=== PATIENT | male | born 1950 | race Caucasian/White ===

== ENCOUNTER 2020-12-14 10:49 | Day surgery (SDC) | payer OTHER ==
[~2020-12-14] VITALS: Ht 177.8 cm; Wt 85.9 kg
[2020-12-14] VITALS (8 sets, daily range): BP systolic 124–146; BP diastolic 77–89
[2020-12-14] MEDS ORDERED: normal saline 1000ml 1,000 ML IV SCH (11:10)
[2020-12-14] MEDS ORDERED: MIDAZolam 1mg/ml 10ml vial IV ONE (11:10)
[2020-12-14] MEDS ORDERED: fentaNYL/PF 50MCG/1 ML 2ML syringe IV ONE (11:10)
[2020-12-14 11:39] LABS: BASOPHILS % (AUTO) 0.4 % (0-1); EOSINOPHILS # (AUTO) 0.1 X10'3 (0-0.9); EOSINOPHILS % (AUTO) 1.2 % (0-6); HEMATOCRIT 42.2 % (42.0-52.0); HEMOGLOBIN 14.1 g/dl (14.0-17.9); LYMPHOCYTES # (AUTO) 1.8 X10'3 (1.1-4.8); LYMPHOCYTES % (AUTO) 23.9 % (21-51); MEAN CORPUSCULAR HEMOGLOBIN 31.1 PG (27.0-31.0); MEAN CORPUSCULAR HGB CONC 33.4 g/dL (33.0-36.5); MEAN CORPUSCULAR VOLUME 93.1 FL (78-98); MEAN PLATELET VOLUME 7.5 FL (7.4-10.4); MONOCYTES # (AUTO) 0.8 X10'3 (0-0.9); MONOCYTES % (AUTO) 11.2 % (2-12); NEUTROPHILS # (AUTO) 4.7 X10'3 (1.8-7.7); NEUTROPHILS % (AUTO) 63.3 % (42-75); PLATELET COUNT 283 X10'3 (140-440); RED BLOOD COUNT 4.53 X10'6 (4.70-6.10); RED CELL DISTRIBUTION WIDTH 14.1 % (11.5-14.5); WHITE BLOOD COUNT 7.4 X10'3 (4.5-11.0)
[2020-12-14 11:46] LABS: ALBUMIN 3.4 G/DL (3.4-5.0); ANION GAP 9 (8-16); BLOOD UREA NITROGEN 11 MG/DL (7-18); BUN/CREATININE RATIO 11.7 (5.4-32.0); CALCIUM 8.4 MG/DL (8.5-10.1); CHLORIDE 109 MMOL/L (99-107); CREATININE 0.94 MG/DL (0.60-1.10); POTASSIUM 4.4 MMOL/L (3.5-5.1); SODIUM 143 MMOL/L (135-145); TOTAL CARBON DIOXIDE 25.5 MMOL/L (24-32); eGFR 79 ML/MIN
[2020-12-14] MEDS ORDERED: SOTA80TA73 PO (11:53)
[2020-12-14] MEDS ORDERED: ACET-1025 PO (11:53)
[2020-12-14] MEDS ORDERED: LISI20TA28 PO (11:53)
[2020-12-14] MEDS ORDERED: OMEP40CA21 PO (11:53)
[2020-12-14] MEDS ORDERED: RIVA20TA PO (11:53)
[2020-12-14] MEDS ORDERED: ALPR-624 PO (11:53)
[2020-12-14] MEDS ORDERED: SIMV80TA2 PO (11:53)
[2020-12-14 11:56] LABS: GLUCOSE 99 MG/DL (70-104)
== END 2020-12-14 14:45 | disposition home or self-care (01) ==
LOC: SSTAY O 10:49
PROVIDERS: ATTEND Internal Medicine Interventional Cardiology
DX: I48.91 Unspecified atrial fibrillation (principal); I10 Essential (primary) hypertension; E78.5 Hyperlipidemia, unspecified; G47.30 Sleep apnea, unspecified; F43.10 Post-traumatic stress disorder, unspecified; Z79.899 Other long term (current) drug therapy; Z89.511 Acquired absence of right leg below knee
CPT/HCPCS: 36415; 80048; 85025; 85610; 92960; 93005; 94799; J2250; J3010; J7030

== ENCOUNTER 2021-08-17 09:11 | Outpatient (CLI) | payer OTHER ==
[~2021-08-17 09:11] MED LIST: ACET-1025 PO; ALPR-624 PO; BARIUM SULFATE 340 ML SUSP.RECON***PROCEDURE AREA ONLY**DONT ENTER PO ONE; LISI20TA28 PO; OMEP40CA21 PO; RIVA20TA PO; SIMETHICONE/SOD BICARB/CIT AC PACKET PO ONE; SIMV80TA2 PO; SOTA80TA73 PO
== END 2021-08-17 23:59 | disposition home or self-care (01) ==
LOC: RAD 09:11
PROVIDERS: ATTEND Nurse Practitioner Family
DX: R13.10 Dysphagia, unspecified (principal)
CPT/HCPCS: 74220

== ENCOUNTER 2021-10-06 08:47 | Emergency (ER) | payer OTHER, MEDICARE ==
[~2021-10-06] VITALS: Ht 177.8 cm; Wt 84.5 kg
[~2021-10-06 08:47] MED LIST changes: -BARIUM SULFATE 340 ML SUSP.RECON***PROCEDURE AREA ONLY**DONT ENTER PO ONE; -SIMETHICONE/SOD BICARB/CIT AC PACKET PO ONE
[2021-10-06 10:02] LABS: BASOPHILS % (AUTO) 0.2 % (0-1); EOSINOPHILS % (AUTO) 0 % (0-6); HEMATOCRIT 40.2 % (42.0-52.0); HEMOGLOBIN 13.8 g/dl (14.0-17.9); LYMPHOCYTES # (AUTO) 0.6 X10'3 (1.1-4.8); MEAN CORPUSCULAR HEMOGLOBIN 30.3 PG (27.0-31.0); MEAN CORPUSCULAR HGB CONC 34.3 g/dL (33.0-36.5); MEAN CORPUSCULAR VOLUME 88.1 FL (78-98); MEAN PLATELET VOLUME 7.4 FL (7.4-10.4); MONOCYTES # (AUTO) 1.1 X10'3 (0-0.9); MONOCYTES % (AUTO) 9.8 % (2-12); PLATELET COUNT 257 X10'3 (140-440); RED BLOOD COUNT 4.56 X10'6 (4.70-6.10); RED CELL DISTRIBUTION WIDTH 15.5 % (11.5-14.5); WHITE BLOOD COUNT 10.7 X10'3 (4.5-11.0)
[2021-10-06 10:31] LABS: ALANINE AMINOTRANSFERASE 20 U/L (12-78); ALBUMIN 2.8 G/DL (3.4-5.0); ALKALINE PHOSPHATASE 115 IU/L (46-116); ANION GAP 11 (8-16); BLOOD UREA NITROGEN 15 MG/DL (7-18); BUN/CREATININE RATIO 15.6 (5.4-32.0); CALCIUM 7.9 MG/DL (8.5-10.1); CHLORIDE 106 MMOL/L (99-107); CREATININE 0.96 MG/DL (0.60-1.10); POTASSIUM 3.6 MMOL/L (3.5-5.1); SODIUM 139 MMOL/L (135-145); TOTAL CARBON DIOXIDE 21.6 MMOL/L (24-32); eGFR 77 ML/MIN
[2021-10-06 10:32] LABS: ALBUMIN/GLOBULIN RATIO 0.7 (1.1-1.5); ASPARTATE AMINO TRANSFERASE 14 U/L (10-37); BILIRUBIN,TOTAL 0.8 MG/DL (0.1-1.0); GLUCOSE 113 MG/DL (70-104); TOTAL PROTEIN 6.8 G/DL (6.4-8.2)
[2021-10-06] MEDS ORDERED: AZIT500T PO (15:30)
[2021-10-06] MEDS ORDERED: sotalol HCl 40mg (1/2 tablet) PO STA ×2 (15:37→16:12)
[2021-10-06] MEDS ORDERED: azithromycin 250mg tablet PO ONE (15:40)
--- NOTE | 2021-10-06 15:40 | NUR ---
Pt connected to case monitor for further observation, denies cp or other sx.
[2021-10-06] MEDS ORDERED: sotalol 80mg tablet PO STA (16:34)
--- NOTE | 2021-10-06 16:49 | NUR ---
Pt d/c home via ambulatory in good condition, instructions given, pt verbalized understanding.
[2021-10-06 16:52] VITALS: BP 142/82
== END 2021-10-06 16:53 | disposition home or self-care (01) ==
LOC: ER 08:48
DX: J18.9 Pneumonia, unspecified organism (principal); Z20.822 Contact with and (suspected) exposure to COVID-19; R07.89 Other chest pain
CPT/HCPCS: 36415; 71045; 71275; 80053; 83880; 84484; 85025; 87635; 93005; 99285; C9803; J3490

== ENCOUNTER 2021-11-01 10:38 | Day surgery (SDC) | payer OTHER ==
[2021-10-27 10:23] LABS: BASOPHILS % (AUTO) 0.3 % (0-1); EOSINOPHILS % (AUTO) 0.5 % (0-6); HEMATOCRIT 43.2 % (42.0-52.0); HEMOGLOBIN 14.5 g/dl (14.0-17.9); LYMPHOCYTES # (AUTO) 1.6 X10'3 (1.1-4.8); LYMPHOCYTES % (AUTO) 20.8 % (21-51); MEAN CORPUSCULAR HEMOGLOBIN 29.7 PG (27.0-31.0); MEAN CORPUSCULAR HGB CONC 33.5 g/dL (33.0-36.5); MEAN CORPUSCULAR VOLUME 88.7 FL (78-98); MEAN PLATELET VOLUME 7.6 FL (7.4-10.4); MONOCYTES # (AUTO) 0.7 X10'3 (0-0.9); MONOCYTES % (AUTO) 9.7 % (2-12); NEUTROPHILS # (AUTO) 5.3 X10'3 (1.8-7.7); NEUTROPHILS % (AUTO) 68.7 % (42-75); PLATELET COUNT 339 X10'3 (140-440); RED BLOOD COUNT 4.87 X10'6 (4.70-6.10); RED CELL DISTRIBUTION WIDTH 15.9 % (11.5-14.5); WHITE BLOOD COUNT 7.7 X10'3 (4.5-11.0)
[2021-10-27 10:34] LABS: APTT 34 SECONDS (22-32)
[2021-10-27 10:35] LABS: ALBUMIN 3.4 G/DL (3.4-5.0); ANION GAP 8 (8-16); BLOOD UREA NITROGEN 12 MG/DL (7-18); BUN/CREATININE RATIO 12.4 (5.4-32.0); CALCIUM 8.6 MG/DL (8.5-10.1); CHLORIDE 109 MMOL/L (99-107); CHOL/HDL RATIO 3.1 (0.00-4.99); CHOLESTEROL 130 MG/DL (0-200); CREATININE 0.97 MG/DL (0.60-1.10); HDL CHOLESTEROL 42 MG/DL (35-60); LDL CHOLESTEROL 70 MG/DL (50-100); POTASSIUM 4.2 MMOL/L (3.5-5.1); SODIUM 142 MMOL/L (135-145); TOTAL CARBON DIOXIDE 24.6 MMOL/L (24-32); TRIGLYCERIDES 91 MG/DL (20-135); eGFR 76 ML/MIN
[2021-10-27 10:36] LABS: GLUCOSE 91 MG/DL (70-104)
[2021-11-01] VITALS (9 sets, daily range): BP systolic 118–151; BP diastolic 80–96
[~2021-11-01] VITALS: Ht 177.8 cm; Wt 84.1 kg
[2021-11-01] MEDS ORDERED: normal saline 1,000 ML IV SCH (11:15)
[2021-11-01] MEDS ORDERED: diphenhydrAMINE 25mg capsule PO PRN (11:15)
[2021-11-01] MEDS ORDERED: LORazepam 0.5 MG tablet PO PRN (11:15)
[2021-11-01] MEDS ORDERED: ROSU40TA PO (11:38)
[2021-11-01] MEDS ORDERED: LOP25T PO (11:38)
[2021-11-01] MEDS ORDERED: DOCU100C40 PO (11:38)
[2021-11-01] MEDS ORDERED: LIDOcaine 1%/PF 5ML 10 MG/ML VIAL ONE (14:04)
[2021-11-01] MEDS ORDERED: heparin 1,000unit/ml 10ml vial 10 ML ONE (14:05)
[2021-11-01] MEDS ORDERED: fentaNYL/PF 50MCG/1 ML 2ML syringe ONE (14:05)
[2021-11-01] MEDS ORDERED: midazolam 1 mg/ML 2ml injection ONE (14:05)
[2021-11-01] MEDS ORDERED: IOHEXOL 350 MG/ML INFUS..BTL 125ML IV ONE (14:05)
[2021-11-01] MEDS ORDERED: verapamil 2.5 mg/ml inj IV ONE (14:06)
[2021-11-01] MEDS ORDERED: nitroGLYCERIN-Tridil 50MG/D5W 250 ML IV ONE (14:06)
[2021-11-01] MEDS ORDERED: heparin 1,000 UNITS/NS 500ml 500 ML ONE (15:40)
[2021-11-01] MEDS ORDERED: clopidogrel 300mg tablet ONE (15:40)
[2021-11-01] MEDS ORDERED: aspirin 325mg tablet ONE (15:40)
[2021-11-01] MEDS ORDERED: HYDROcodone/acetaminophen 10/325mg tab PO PRN (16:50)
[2021-11-01] MEDS ORDERED: HYDROcodone/acetaminophen 5mg/325mg tablet PO PRN (16:50)
== END 2021-11-01 19:25 | disposition home or self-care (01) ==
LOC: SSTAY O 10:38
PROVIDERS: ATTEND Student in an Organized Health Care Education/Training Program
DX: I25.10 Atherosclerotic heart disease of native coronary artery without angina pectoris (principal); Z79.01 Long term (current) use of anticoagulants; Z79.899 Other long term (current) drug therapy; I10 Essential (primary) hypertension; I48.91 Unspecified atrial fibrillation; Z98.890 Other specified postprocedural states
CPT/HCPCS: 36415; 80048; 80061; 85025; 85610; 85730; 93005; 93458; 99152; 99153; A6258; C1725; C1751; C1760; C1769; C1874; C1894; C9600; J1644; J2250; J3010; J3490; J7030; Q0163; Q9967; A4620; A5120; A6402

== ENCOUNTER 2021-11-25 12:45 | Emergency (ER) | payer OTHER ==
[~2021-11-25] VITALS: Ht 177.8 cm; Wt 84.1 kg
[~2021-11-25 12:45] MED LIST changes: +DOCU100C40 PO; +LOP25T PO; +ROSU40TA PO; -SIMV80TA2 PO; -SOTA80TA73 PO
[2021-11-25 13:20] VITALS: BP 135/93
== END 2021-11-25 17:16 | disposition left against medical advice (07) ==
LOC: ER 12:46
DX: R13.10 Dysphagia, unspecified (principal); Z53.21 Procedure and treatment not carried out due to patient leaving prior to being seen by health care provider

== ENCOUNTER 2024-07-06 10:52 | Emergency (ER) | payer OTHER, MEDICARE ==
[~2024-07-06] VITALS: Ht 177.8 cm; Wt 68.9 kg
[2024-07-06 10:53] VITALS: BP 101/73; PULSE 89; RESP 16; O2SAT 94
--- NOTE | 2024-07-06 11:31 | RADIOLOGY REPORT ---
DI CLAVICLE, HISTORY: fracture per pt TECHNICAL DATA: AP and AP cephalic views were obtained of the left clavicle. COMPARISON: None FINDINGS: Mildly displaced fracture of the lateral clavicle. The acromioclavicular joint appears preserved. . IMPRESSION: Mildly displaced fracture of the lateral clavicle.
--- NOTE | 2024-07-06 11:46 | Physician Documentation ---
History of Present Illness ~ Chief Complaint: Shoulder pain Stated Complaint: FRACTURED CLAVICLE Time Seen by MD: 11:18 HPI 74-year-old male presents to the ED after falling on his right shoulder two days ago. States he thinks he broke his clavicle based on the level of pain. denies numbness or tingling Tetanus within 5 years?: No Medication Reconciliation Allergies: Coded Allergies: No Known Allergies (Unverified , 11/25/21) Scheduled Docusate Sodium (Docusate Sodium), 1 CAP PO DAILY, (Reported) Lisinopril (Lisinopril), 0.5 TAB PO DAILY, (Reported) Metoprolol Tartrate* (Lopressor tablet*), 1 TAB PO Q12H, (Reported) Omeprazole (Prilosec), 1 CAP PO DAILY, (Reported) Rivaroxaban (Xarelto), 1 TAB PO HS, (Reported) Rosuvastatin Calcium* (Crestor*), 1 TAB PO DAILY, (Reported) Scheduled PRN Acetaminophen (Tylenol Extra Strength), 1 TAB PO DAILY PRN for pain or fever, (Reported) Alprazolam (Xanax), 1 TAB PO DAILY PRN for anxiety, (Reported) Hydrocodone Bit/Acetaminophen 5/325 MG (Shellman 5/325 MG), 1 TAB PO Q6H PRN for pain Past Medical History Past Medical History: High Cholesterol, Hypertension Past Surgical History: noncontributory Alcohol Use: None Drug Use: none Review of Systems All Other Systems at this time: Reviewed and Negative ROS As stated above in the HPI, otherwise all systems are reviewed and negative. Physical Exam Vital Signs: Temperature: 98.0, Source: Temporal, Heart Rate: 89, Respiratory Rate: 16, BP: 101/73, Pulse Oximetry: 94, Weight: 68.900 Oxygen Flow Rate: 0 Physical Exam General: Alert, no apparent distress. HEENT: PERRL, EOMI, no injection, moist mucous membranes. Neck: Full range of motion. Tender to palpation in the right clavicle region, no crepitus Extremities: Normal range of motion, no deformity. Neurologic: Oriented x4. Psychiatric: Normal mood and affect. Skin: Normal color, warm and dry. No edema, no ecchymosis. Progress Results/Orders Results/Orders Orders - RODOLFO BONILLA [employer] Ortho Orders (07/06/24 ) Vital Signs 07/06/24 07/06/24 10:53 12:11 Temp 98.0 98.0 Pulse 89 Resp 16 B/P (MAP) 101/73 Pulse Ox 94 O2 Flow Rate 0 Medical Decision Making Findings Patient has a mildly displaced clavicle fracture. This is per my interpretation going to place the patient in a sling and have him follow up with Orthopedics an outpatient setting I will send him some Shellman to [facility] to help with the pain in the coming days. Differential Dx:Considerations: Include: AC separation, Adhesive capsulitis, arthritis, Bicipital tendonitis, Calcific tendonitis, Cervical disc disease, Contusion, Dislocation, Fracture: Humerus, Fracture: Scapula, Fracture: Clavicle, Gallbladder Disease, Hematoma, Impingement syndrome, Myocardial infarction, Neurovascular Injury, Rotator cuff injury, SC dislocation, Sprain, Subacromial bursitis, other Departure Disposition: 01 HOME / SELF CARE / HOMELESS Impression: Primary Impression: Shoulder pain Additional Impression: Clavicle fracture Condition: Stable Discharge Instructions: Shoulder Fracture Referrals: NO PRIMARY CARE PROVIDER (PCP) Prescriptions Hydrocodone Bit/Acetaminophen 5/325 MG (Shellman 5/325 MG) 5 Mg/325 Mg Tablet 1 TAB PO Q6H PRN for pain, #14 TAB Prov: RODOLFO BONILLA [employer] 07/06/24 Education Educated: Patient Educated regarding: diagnosis Signature Scribe Signature: h Attestation: The note accurately reflects work and decisions made by me.Rodolfo Bonilla - MAJO 07/06/24 14:45 RODOLFO BONILLA NP July 06, 2024 11:46
[2024-07-06] MEDS ORDERED: HYDR-3965 PO (11:52)
[2024-07-06 12:11] VITALS: TEMP 98
== END 2024-07-06 12:17 | disposition home or self-care (01) ==
LOC: ER 10:52
DX: S42.031A Displaced fracture of lateral end of right clavicle, initial encounter for closed fracture (principal); E78.00 Pure hypercholesterolemia, unspecified; I10 Essential (primary) hypertension; W19.XXXA Unspecified fall, initial encounter; Y93.89 Activity, other specified; Y92.89 Other specified places as the place of occurrence of the external cause; Y99.8 Other external cause status
CPT/HCPCS: 73000; 99283; A4565

== ENCOUNTER 2024-12-16 12:30 | Inpatient (IN) | payer OTHER, MEDICARE ==
[2024-12-16] VITALS (7 sets, daily range): BP systolic 110–150; BP diastolic 68–81; PULSE 75–85; RESP 16–20; TEMP 97.8–98.5; O2SAT 95–100
[~2024-12-16] VITALS: Ht 177.8 cm; Wt 70.5 kg
[2024-12-16 13:17] LABS: MEAN PLATELET VOLUME 8.4 FL (7.4-10.4); RED CELL DISTRIBUTION WIDTH 25.9 % (11.5-14.5)
--- NOTE | 2024-12-16 14:16 | Physician Documentation ---
History of Present Illness Chief Complaint: Abnormal Lab(s) Stated Complaint: BLOOD TRANSFUSION Time Seen by MD: 13:33 Mode of Arrival: POV, Ambulatory HPI 84-YEAR-OLD MALE PRESENTS TO THE ED WITH CONCERNS OVER ANEMIA. [facility] AND HAS A COLONOSCOPY SCHEDULED FOR LATER THIS MONTH HOWEVER HE HAS HAD INCREASED CONFUSION LETHARGY AND WEAKNESS. PATIENT IS CURRENTLY A&O X4. [facility] SUSPICIOUS FOR GI BLEED WELL. PATIENT REPORTS DARK STOOLS. Day of Onset: Dec 16, 2024 Medication Reconciliation Allergies: Coded Allergies: No Known Allergies (Unverified , 11/25/21) Scheduled Docusate Sodium (Docusate Sodium), 1 CAP PO DAILY, (Reported) Lisinopril (Lisinopril), 0.5 TAB PO DAILY, (Reported) Metoprolol Tartrate* (Lopressor tablet*), 1 TAB PO Q12H, (Reported) Omeprazole (Prilosec), 1 CAP PO DAILY, (Reported) Rivaroxaban (Xarelto), 1 TAB PO HS, (Reported) Rosuvastatin Calcium* (Crestor*), 1 TAB PO DAILY, (Reported) Scheduled PRN Acetaminophen (Tylenol Extra Strength), 1 TAB PO DAILY PRN for pain or fever, (Reported) Alprazolam (Xanax), 1 TAB PO DAILY PRN for anxiety, (Reported) Past Medical History Past Medical History: High Cholesterol, Hypertension Past Surgical History: noncontributory Alcohol Use: None Drug Use: none Physical Exam Vital Signs: Temperature: 98.5, Source: Temporal, Heart Rate: 88, Respiratory Rate: 18, BP: 120/70, Pulse Oximetry: 99, Weight: 70.450 Oxygen Flow Rate: 0 Physical Exam General: Alert, no apparent distress. Respiratory: Lungs clear, no respiratory distress. Chest: No accessory muscle use. Cardiovascular: Regular rate and rhythm, no murmurs. Gastrointestinal: Soft, nontender, nondistended. Bowels sounds present. Extremities: Normal range of motion, no deformity. Neurologic: Oriented x4. Psychiatric: Normal mood and affect. Skin: PALE warm and dry. No edema, no ecchymosis. Progress Results/Orders Results/Orders Orders - RODOLFO BONILLA NP Lrpc - Active Bleeding (12/16/24 13:51) Vital Signs 12/16/24 12/16/24 12:39 13:35 Temp 98.5 Pulse 88 Resp 16 18 B/P (MAP) 120/70 Pulse Ox 99 O2 Flow Rate 0 Laboratory Tests Test 12/16/24 13:05 White Blood Count 3.4 L Red Blood Count 2.14 L Hemoglobin 7.1 L Hematocrit 22.2 L Mean Corpuscular Volume 103.4 H Mean Corpuscular Hemoglobin 33.0 H Mean Corpuscular Hemoglobin Concent 31.9 L Red Cell Distribution Width 25.9 H Platelet Count 186 Mean Platelet Volume 8.4 Neutrophils (%) (Auto) 56.5 Lymphocytes (%) (Auto) 26.0 Monocytes (%) (Auto) 16.2 H Eosinophils (%) (Auto) 0.3 Basophils (%) (Auto) 1.0 Neutrophils # (Auto) 1.9 Lymphocytes # (Auto) 0.9 L Monocytes # (Auto) 0.6 Eosinophils # (Auto) 0.0 Basophils # (Auto) 0.0 CBC Comment Medical Decision Making Additional information obtaine: N/A Findings 74-YEAR-OLD MALE I AM HIGHLY SUSPICIOUS OF A GI BLEED CAUSING HIS GROSS ANEMIA. DID ORDER A UNIT [facility] AND I CONSULTED WITH DR. GENTILE FOR EVALUATION BY COLONOSCOPY. WE WILL BE ADMITTING THE PATIENT FOR LIKELY ADD AN ADDITIONAL TRANSFUSION. POSITIVE GUAIAC REQUESTING HOSPITALIST SERVICE Differential Dx:Considerations: Bowel obstruction Departure Disposition: ADMITTED INPATIENT Impression: Primary Impression: Abnormal laboratory test result Additional Impressions: Anemia GI bleed Condition: Stable Referrals: NO PRIMARY CARE PROVIDER (PCP) Signature Scribe Signature: BN Attestation: Scribed for Rodolfo Bonilla Guest Room Inspector by Rodolfo Joyner NP . 12/16/24 14:24 RODOLFO BONILLA NP Dec 16, 2024 14:16
[2024-12-16] MEDS ORDERED: magnesium Cl slow-release 64mg tablet PO PRN (14:40)
[2024-12-16] MEDS ORDERED: potassium Cl 20 mEq SR tablet PO PRN ×2 (14:40)
[2024-12-16] MEDS ORDERED: ondansetron/PF 4mg/2ml inj IV PRN (14:40)
[2024-12-16] MEDS ORDERED: magnesium sulf-water 4G/100mL 100 ML IV PRN (14:40)
[2024-12-16] MEDS ORDERED: magnesium sulf-water 2g/50mL 50 ML IV PRN (14:40)
[2024-12-16] MEDS ORDERED: HYDROcodone/acetaminophen 5mg/325mg tablet PO PRN (14:40)
[2024-12-16] MEDS ORDERED: potassium Cl 40MEQ/1/2NS 520ml 520 ML IV PRN (14:40)
[2024-12-16 14:45] LABS: BANDS% (MANUAL) 4.0 % (0-10); LYMPHOCYTES % (MANUAL) 21.0 % (21-51); METAMYLEOCYTES% (MANUAL) 1.0 % (0-0); MONOCYTES % (MANUAL) 20.0 % (2-12); NEUTROPHILS % (MANUAL) 54.0 % (42-75)
[2024-12-16 14:46] LABS: PLATELET ESTIMATE NORMAL
[2024-12-16] MEDS: normal saline 1000ml 1,000 ML IV SCH (15:07)
[2024-12-16] MEDS: pantoprazole 40MG/NS 100ML BAG 100 ML IV SCH (15:07)
[2024-12-16] MEDS: normal saline 1000ML IV soln IVB ONE (15:07)
[2024-12-16 15:15] LABS: APTT 27 SECONDS (22-32); CREATININE 1.16 MG/DL (0.60-1.10); INR 1.4 INR; TOTAL CARBON DIOXIDE 25.1 MMOL/L (24-32); eCRCL 54 ML/MIN; eGFR 61 ML/MIN
[2024-12-16 16:00] LABS: OCCULT BLOOD STOOL POSITIVE (Neg)
[2024-12-16 17:31] LABS: % IRON SATURATION 3 % (11-46)
[2024-12-16] MEDS: PEG 3350/Na sulf,bicarb,Cl/KCl oral sol 4 liter bottle PO ONE (19:58)
--- NOTE | 2024-12-16 21:29 | HISTORY AND PHYSICAL ---
History & Physical Providers to ~ History of Present Illness Reason for Admit\Complaint: Left lower abdomen pain since few weeks History of Present Illness Patient is 74-year-old male not very good historian has some mild memory loss. Patient feels that he is getting weaker and lost lot of weight and has no appetite. He follows in [place] in he has schedule colonoscopy for later this month however his pain over left lower quadrant increase and that is the main reason he came to the ER further workup done in ER and his hemoglobin was 7.1 hematocrit 22.2 stool guaiac testing was also positive. ER provider contacted GI specialist Dr. Simms who is willing to do the colonoscopy for patient in a.m. in [facility] ordered by ER provider. Patient denies any other symptoms no other exacerbating factors no other alleviating factor He does follow with Dr. De La Vega and currently on Xarelto blood thinner in his medication list but he does not recall for what problem he follows with Dr. De La Vega. He also off and on use cannabis for stress relief. Allergies: Coded Allergies: No Known Allergies (Unverified , 11/25/21) Home Medications Home Medications Active Reported Crestor* (Rosuvastatin Calcium) 40 Mg Tablet 1 Tab PO DAILY Lopressor tablet* (Metoprolol Tartrate) 25 Mg Tablet 1 Tab PO Q12H Hold for SBP below 100mm Hg Hold for Heart Rate below 60. Docusate Sodium 100 Mg Caps 1 Cap PO DAILY Xarelto (Rivaroxaban) 20 Mg Tablet 1 Tab PO HS 30 Days with food Prilosec (Omeprazole) 40 Mg Capsule 1 Cap PO DAILY 30 Days Lisinopril 20 Mg Tablet 0.5 Tab PO DAILY 30 Days Xanax (Alprazolam) 0.5 Mg Tablet 1 Tab PO DAILY PRN Tylenol Extra Strength (Acetaminophen) 500 Mg Tablet 1 Tab PO DAILY PRN 3 Days Past Medical History Past Medical History Possible hypertension, atrial fibrillation, hyperlipidemia, anxiety disorder Past Surgical History Surgical History Comment No pertinent surgical history Past Social History Social History Comment Denies use of any alcohol or any tobacco but he did mentioned to me that 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 Use cannabis for stress relieve lives with his . He is retired , able to ambulate ROS ROS Review of system as mentioned above in HPI rest of the review of system unremarkable Exam Vitals: Vital Signs Date Time Temp Pulse Resp B/P (MAP) Pulse Ox O2 Delivery O2 Flow Rate FiO2 12/16/24 17:55 98.5 78 18 120/78 12/16/24 16:20 98 0 General: General-patient not in any acute distress, alert awake chronically ill- appearing, age-appropriate HEENT-atraumatic normocephalic, neck supple without elevated JVD, No lymphadenopathy bilaterally. Eyes-no icterus or pallor seen in eyes Chest-clear to auscultation bilaterally, breathing nonlabored no tachypnea, no wheezing, no crepitation, no crackles. Heart-S1-S2 normal, regular heart rate no murmur Abdomen bowel sounds positive on auscultation, soft nondistended, we will discomfort on palpation over left lower quadrant, no guarding, no rigidity Skin no active skin rash Neurology-grossly intact, nonfocal alert awake oriented, signs of mild memory loss Extremity- no pedal edema able to move all 4 extremities Psychiatry - patient is not confused or agitated cooperated during physical examination Diagnostic Data Last Recorded Lab Results: 12/16/24 1305 12/16/24 1257 Diagnostic Data: Laboratory Tests Test 12/16/24 12:57 Prothrombin Time 14.0 SECONDS (9.0-12.0) H INR International Normalized Ratio 1.4 INR Activated Partial Thromboplast Time 27 SECONDS (22-32) Coagulation Comments Advance Care Planning Advanced Care plannin - 30 Minutes Additional Plan Patient is 74-year-old male not very good historian has some mild memory loss. Patient feels that he is getting weaker and lost lot of weight and has no appetite. He follows in [place] in he has schedule colonoscopy for later this month however his pain over left lower quadrant increase and that is the main reason he came to the ER further workup done in ER and his hemoglobin was 7.1 hematocrit 22.2 stool guaiac testing was also positive. ER provider contacted GI specialist Dr. Simms who is willing to do the colonoscopy for patient in a.m. in [facility] ordered by ER provider. Patient denies any other symptoms no other exacerbating factors no other alleviating factor He does follow with Dr. De La Vega and currently on Xarelto blood thinner in his medication list but he does not recall for what problem he follows with Dr. De La Vega. He also off and on use cannabis for stress relief. # Patient is admitted for GI bleeding we will keep the patient NPO after midnight [place] ordered by ER provider. Patient is started on IV Protonix drip today . # Other comorbidities include Possible hypertension, atrial fibrillation, hyperlipidemia, anxiety disorder We will continue to monitor patient's labs and vitals closely . Needs physical therapy evaluation before discharge . Code status discussed with the patient patient wishes tech writer spent in discussing code status 16 minutes. We will do home medication reconciliation once updated in electronic by nursing staff or pharmacist. Further management depending on response to treatment and as per recommendation by Dr Simms , GI specialist I will continue to follow patient in a.m. Date of Service: Dec 16, 2024 Billing Provider: SHIRA DIALLO MD Common Visit Codes: [id number] INP/OBS CARE (HIGH) Secondary Visit Codes: [id number] CARE PLAN 30 MINUTES SHIRA DIALLO MD Dec 16, 2024 21:29
[2024-12-17] VITALS (16 sets, daily range): BP systolic 94–140; BP diastolic 51–82; PULSE 43–87; RESP 14–23; TEMP 97.2–99.8; O2SAT 87–100
--- NOTE | 2024-12-17 00:11 | CONSULTATION ---
DATE OF CONSULTATION: 12/16/2024 DICTATING PHYSICIAN: Shreya Bullock MD REASON FOR CONSULTATION: Anemia. HISTORY OF PRESENT ILLNESS: The patient is 74 years old who came in with generalized weakness and was found to have anemia. He had a hemoglobin of 7.1, hematocrit of 22.2, but MCV was 103.4. I do not have any other workup by way of iron profile at this time or folate or B12 levels. Coagulation profile is normal. He had complained of dark stools because of which hemoccult testing was done which was positive. He denies obvious GI bleeding in the form of melena or hematochezia. PAST MEDICAL HISTORY: Positive for hypercholesterolemia and hypertension. FAMILY HISTORY AND PERSONAL HISTORY: Noncontributory. REVIEW OF SYSTEMS: A 12-point review of systems is essentially same as history of present illness. PHYSICAL EXAMINATION: GENERAL: He is awake, alert, appears to be in no apparent distress. VITAL SIGNS: Normal. NECK: Supple, no thyromegaly, no JVD, no significant lymphadenopathy. Oral cavity within normal limits. HEART: Normal. LUNGS: Normal. ABDOMEN: Soft, nontender, no masses, no organomegaly. Bowel sounds are present. EXTREMITIES: Reveal no clubbing, cyanosis or edema. LABORATORY DATA: Laboratory values are as above. IMPRESSION: A 74-year-old gentleman admitted with anemia. It is microcytic with elevated MCV; however, he is hemoccult positive at this time. PLAN: He says he had a colonoscopy 5-6 years ago. However, because of severe anemia and hemoccult positive stool, I would recommend panendoscopy, both EGD and colonoscopy, to further evaluate. We will plan on starting with an EGD and if colonoscopy prep is done, we will plan on a colonoscopy again at the same time tomorrow. However, if it is not done, we can postpone the colonoscopy to the following day. He does require bidirectional endoscopic workup to further evaluate the hemoccult positive stool. The risks and benefits explained, understands and wishes to proceed. Shreya Bullock MD TID: [id number] RECEIPT: [id number] PC/RCR
[2024-12-17 05:01] LABS: MEAN PLATELET VOLUME 8.2 FL (7.4-10.4)
[2024-12-17 05:05] LABS: RED CELL DISTRIBUTION WIDTH 24.5 % (11.5-14.5)
[2024-12-17 07:07] LABS: MEAN PLATELET VOLUME 8.0 FL (7.4-10.4); RED CELL DISTRIBUTION WIDTH 25.6 % (11.5-14.5)
[2024-12-17] MEDS ORDERED: LIDOcaine 2% Viscous 15ml cup ONE (08:37)
[2024-12-17 09:31] LABS: BANDS% (MANUAL) 5.0 % (0-10); LYMPHOCYTES % (MANUAL) 21.0 % (21-51); MONOCYTES % (MANUAL) 17.0 % (2-12); NEUTROPHILS % (MANUAL) 57.0 % (42-75); PLATELET ESTIMATE DECREASED
[2024-12-17] MEDS ORDERED: propofol inj 20 ML IV ONE ×2 (10:22→11:01)
[2024-12-17] MEDS: PEG 3350/Na sulf,bicarb,Cl/KCl oral sol 4 liter bottle PO ONE (11:05)
[2024-12-17 17:00] LABS: MEAN PLATELET VOLUME 8.2 FL (7.4-10.4)
[2024-12-17 17:02] LABS: RED CELL DISTRIBUTION WIDTH 26.0 % (11.5-14.5)
[2024-12-17 17:44] LABS: BANDS% (MANUAL) 28.0 % (0-10); EOSINOPHILS % (MANUAL) 1.0 % (0-6); LYMPHOCYTES % (MANUAL) 40.0 % (21-51); MONOCYTES % (MANUAL) 22.0 % (2-12); NEUTROPHILS % (MANUAL) 9.0 % (42-75); NUCLEATED RED BLOOD CELLS 1 /100WBC (0-0)
[2024-12-17 17:45] LABS: PLATELET ESTIMATE DECREASED
[2024-12-17] MEDS ORDERED: acetaminophen 325mg/10.15ml oral unit dose solution PO PRN (17:50)
--- NOTE | 2024-12-17 19:54 | PROGRESS NOTE ---
Daily Progress Note Providers to CC ~ Antibiotic Timeout Antibiotic Ordered?: No Subjective Patient was seen in his room pain is still over the left lower quadrant on exam. Patient had colonoscopy done today but as per GI specialist prep was not good after [facility] . she removed polyps but some more or there and she wants to do repeat colonoscopy in a.m. [facility] ordered by GI resident. Contracted patient's daughter Alyssa Simpson on 07/12 [id number] in evening in discuss patient's current updated medical conditions in detail with her. She mentioned previously when he was admitted in the hospital he went into delirium and she is happy to get the update from nursing staff or provider's regarding her father. Objective Vital Signs Date Time Temp Pulse Resp B/P (MAP) Pulse Ox O2 Delivery O2 Flow Rate FiO2 12/17/24 12:50 69 111/68 (82) 92 12/17/24 12:35 Room Air 12/17/24 12:05 98.8 18 12/17/24 11:07 2.0 Result Diagram: 12/17/24 1639 12/16/24 1257 General-patient not in any acute distress, alert awake chronically ill- appearing, age-appropriate HEENT-atraumatic normocephalic, neck supple without elevated JVD, No lymphadenopathy bilaterally. Eyes-no icterus or pallor seen in eyes Chest-clear to auscultation bilaterally, breathing nonlabored no tachypnea, no wheezing, no crepitation, no crackles. Heart-S1-S2 normal, regular heart rate no murmur Abdomen bowel sounds positive on auscultation, soft nondistended, we will discomfort on palpation over left lower quadrant, no guarding, no rigidity Skin no active skin rash Neurology-grossly intact, nonfocal alert awake oriented, signs of mild memory loss Extremity- no pedal edema able to move all 4 extremities Psychiatry - patient is not confused or agitated cooperated during physical examination Coagulation Studies Laboratory Tests Test 12/16/24 12:57 Prothrombin Time 14.0 SECONDS (9.0-12.0) H INR International Normalized Ratio 1.4 INR Activated Partial Thromboplast Time 27 SECONDS (22-32) Coagulation Comments Problem\Assessment\Plan Patient is 74-year-old male not very good historian has some mild memory loss. Patient feels that he is getting weaker and lost lot of weight and has no appetite. [place] [facility] [place] for [place] this month however his pain over left lower quadrant increase and that is the main reason he came to the ER further workup done in ER and his hemoglobin was 7.1 hematocrit 22.2 stool guaiac testing was also positive. ER provider contacted GI specialist Dr. Simms who is willing to do the colonoscopy for patient in a.m. in [place] ordered by ER provider. Patient denies any other symptoms no other exacerbating factors no other alleviating factor He does follow with Dr. De La Vega and currently on Xarelto blood thinner in his medication list but he does not recall for what problem he follows with Dr. De La Vega. He also off and on use cannabis for stress relief. # Patient is admitted for GI bleeding we will keep the patient NPO after midnight [facility] ordered by ER provider. Patient is started on IV Protonix drip t. Patient had colonoscopy done today but as per GI specialist prep was not good after [facility] . she removed polyps but some more or there and she wants to do repeat colonoscopy in a.m. [facility] ordered by GI resident. # Other comorbidities include Possible hypertension, atrial fibrillation, hyperlipidemia, anxiety disorder # mild dementia- Contracted patient's daughter Alyssa Simpson on in evening in discuss patient's current updated medical conditions in detail with her. She mentioned previously when he was admitted in the hospital he went into delirium and she is happy to get the update from nursing staff or provider's regarding her father. # Code status discussed with the patient patient wishes full code We will continue to monitor patient's labs and vitals closely . Needs physical therapy evaluation before discharge . home medication reconciliation once updated in electronic records Further management depending on response to treatment and as per recommendation by Dr Simms , GI specialist I will continue to follow patient in a.m. Date of Service: Dec 17, 2024 Billing Provider: SHIRA DIALLO MD Common Visit Codes: [id number] INP/OBS CARE(HIGH) SHIRA DIALLO MD Dec 17, 2024 19:54
[2024-12-17 20:01] LABS: MEAN PLATELET VOLUME 8.2 FL (7.4-10.4); RED CELL DISTRIBUTION WIDTH 26.3 % (11.5-14.5)
[2024-12-18] VITALS (12 sets, daily range): BP systolic 85–134; BP diastolic 45–85; PULSE 48–80; RESP 12–22; TEMP 97.6–98.4; O2SAT 95–100
[2024-12-18] MEDS ORDERED: DEXTROSE 15 GM of carb/4 tabs (each vial/BOTTLE has 4 tablets) PO PRN ×2 (01:55)
[2024-12-18] MEDS ORDERED: glucagon, human recombinant 1mg kit SUBCUT PRN (01:55)
[2024-12-18] MEDS ORDERED: dextrose 50%-water 50ml dispensing syringe IV PRN (01:55)
[2024-12-18] MEDS: dextrose 50%-water 50ml dispensing syringe IV PRN (02:12)
[2024-12-18 04:56] LABS: MEAN PLATELET VOLUME 8.4 FL (7.4-10.4); RED CELL DISTRIBUTION WIDTH 26.1 % (11.5-14.5)
[2024-12-18] MEDS ORDERED: pantoprazole 40mg Tablet.DR PO SCH ×2 (07:30→20:00)
[2024-12-18 08:38] LABS: PLATELET ESTIMATE NORMAL
[2024-12-18 08:44] LABS: LARGE PLATELETS FEW
[2024-12-18 08:45] LABS: ELLIPTOCYTES FEW
[2024-12-18] MEDS ORDERED: propofol inj 20 ML IV ONE (09:34)
[2024-12-18] MEDS ORDERED: glucagon, human recombinant 1mg kit ONE (09:46)
[2024-12-18] MEDS ORDERED: LOP25T PO (12:18)
[2024-12-18] MEDS ORDERED: PANT40TA54 PO (12:18)
[2024-12-18 12:25] LABS: MEAN PLATELET VOLUME 8.5 FL (7.4-10.4); RED CELL DISTRIBUTION WIDTH 25.8 % (11.5-14.5)
[2024-12-18] MEDS ORDERED: DOCU-148 PO (14:14)
[2024-12-18] MEDS ORDERED: FERR324T4 PO (14:14)
--- NOTE | 2024-12-18 18:57 | PATHOLOGY REPORT ---
[facility] [address] [place] [address] SURGICAL PATHOLOGY REPORT CaseNumber: [id number] Surgeon:Shreya Bullock M.D. CLINICAL INFORMATION CLINICAL INFORMATION: Iron deficiency anemia secondary to chronic blood loss. Heme positive stool. DIAGNOSIS DIAGNOSIS: A.GASTRIC ANTRUM, BIOPSIES X 2 - NO SIGNIFICANT INFLAMMATION, EDEMA, OR VASCULAR CONGESTION - NO INTESTINAL METAPLASIA - NO DYSPLASIA OR MALIGNANCY - NO H. PYLORI ORGANISMS BY IMMUNOHISTOCHEMISTRY DIAGNOSIS: B.POLYP, RECTUM, BIOPSY - TUBULAR ADENOMA (0.5 CM) - NO HIGH-GRADE DYSPLASIA OR MALIGNANCY DIAGNOSIS: C.POLYP, ASCENDING COLON, BIOPSY - TUBULAR ADENOMA (0.1 CM) - NO HIGH-GRADE DYSPLASIA OR MALIGNANCY DIAGNOSIS: D.POLYPS X 3, TRANSVERSE COLON, BIOPSIES X 3 - TUBULAR ADENOMAS (0.6 CM) - NO HIGH-GRADE DYSPLASIA OR MALIGNANCY DIAGNOSIS: E.POLYP, DESCENDING COLON, BIOPSIES X 3 - TUBULAR ADENOMA (0.4 CM) - NO HIGH-GRADE DYSPLASIA OR MALIGNANCY MICROSCOPIC DESCRIPTION A. GASTRIC ANTRUM, BIOPSIES X 2 MICROSCOPIC DESCRIPTION: Reviewed is a single H&E-stained slide showing serial sections and levels of two fragments of gastric antral-type mucosa. There is no significant inflammation, edema, or vascular congestion. There is no intestinal metaplasia. There are no dysplastic or neoplastic features. Also, no H. pylori organisms are highlighted by immunohistochemistry. B. POLYP, RECTUM, BIOPSY MICROSCOPIC DESCRIPTION: Reviewed is a single H&E-stained slide showing serial sections and levels of a single polypoid fragment of colonic mucosa. There are areas involved by adenomatous changes that measure up to 0.5 cm in greatest dimension. There are no features of high-grade dysplasia or malignancy. C. POLYP, ASCENDING COLON, BIOPSY MICROSCOPIC DESCRIPTION: Reviewed is a single H&E-stained slide showing serial sections and levels of a single polypoid fragment of colonic mucosa. There are areas involved by adenomatous changes that measure up to 0.1 cm in greatest dimension. There are no features of high-grade dysplasia or malignancy. D. POLYPS X 3, TRANSVERSE COLON, BIOPSIES X 3 MICROSCOPIC DESCRIPTION: Reviewed is a single H&E-stained slide showing serial sections and levels of three polypoid fragments of colonic mucosa. There are areas involved by adenomatous changes that measure up to 0.6 cm in greatest dimension. While there are areas of mild architectural complexity, there are no features of high-grade dysplasia or malignancy. E. POLYP, DESCENDING COLON, BIOPSIES X 3 MICROSCOPIC DESCRIPTION: Reviewed is a single H&E-stained slide showing serial sections and levels of three polypoid fragments of colonic mucosa. There are areas involved by adenomatous changes that measure up to 0.4 cm in greatest dimension. There are no features of high-grade dysplasia or malignancy. GROSS DESCRIPTION A. GASTRIC ANTRUM, BIOPSIES X 2 GROSS DESCRIPTION: Received in a container of formalin labeled with the patient's name, number, and "antrum BX" are two pieces of martin tissue 0.4 x 0.2 x 0.1 cm each. The specimen is entirely submitted as A1. The time at which the specimen was removed was 1015. The time at which the specimen was placed in formalin was 1015. B. POLYP, RECTUM, BIOPSY GROSS DESCRIPTION: Received in a container of formalin labeled with the patient's name, number, and "rectal polyp" is a 0.5 x 0.3 x 0.2 cm piece of martin tissue . The specimen is entirely submitted as B1. The time at which the specimen was removed was 1028. The time at which the specimen was placed in fo rmalin was 1029. C. POLYP, ASCENDING COLON, BIOPSY GROSS DESCRIPTION: Received in a container of formalin labeled with the patient's name, number, and "ascending" is a 0.3 cm polypoid piece of martin tissue. The specimen is entirely submitted as C1. The time at which the specimen was removed was 1039. The time at which the specimen was placed in formalin was 1039. D. POLYPS X 3, TRANSVERSE COLON, BIOPSIES X 3 GROSS DESCRIPTION: Received in a container of formalin labeled with the patient's name, number, and "transverse BX" are three irregularly shaped pieces of martin tissue 0.3-0.7 x 0.3 x 0.2 cm. The specimen is entirely submitted as D1. The time at which the specimen was removed was 1044. The time at which the specimen was placed in formalin was 1048. E. POLYP, DESCENDING COLON, BIOPSIES X 3 GROSS DESCRIPTION: Received in a container of formalin labeled with the patient's name, number, and "descending BX" are three pieces of martin tissue 0.2- 0.5 x 0.2 x 0.1 cm. The specimen is entirely submitted as E1. The time at which the specimen was removed was 1049. The time at which the specimen was placed in formalin was 1050. Electronically signed by: Imer Hermosillo M.D. [id number]
--- NOTE | 2024-12-18 19:42 | DISCHARGE SUMMARY ---
Discharge Summary Providers to CC ~ Discharge Summary Admission Diagnosis: GI bleeding , anemia , weakness Hospital Course DATE OF ADMISSION: December 16, 2024 DATE OF DISCHARGE:December 18, 2024 CBC testing done on December 18, 2024 WBC 3.5 hemoglobin 7.2 hematocrit 21.8 platelet count 146. CMP done on December 16, 2024 sodium 142 potassium 3.6 creatinine 1.16 GFR 61. TIBC 216, serum iron seven. Normal liver enzymes elevated alkaline phosphatase 544, procalcitonin less than 0.05. Stool occult blood testing positive Discharge Diagnosis\Comment: Severe diverticulosis in sigmoid colon, multiple polyps, nonbleeding internal hemorrhoids, mild dementia Possible hypertension, atrial fibrillation, hyperlipidemia, anxiety disorder Operations\Procedures: Colonoscopy done twice Consultants: Dr Simms Complications: None Condition on DC: Stable New Medications: Docusate Sodium (Colace) 100 Mg Capsule 1 CAP PO Q12H for 30 Days, #60 CAP 0 Refills Ferrous Sulfate (Ferrous Sulfate) 324 Mg (65 Mg Iron) Tablet.dr 1 TAB PO Q12H for 30 Days, #60 TAB 0 Refills Pantoprazole Sodium (Pantoprazole Sodium) 40 Mg Tablet.dr 40 MG PO BID for 30 Days, #60 TAB.SR Changed Medications: Metoprolol Tartrate* (Lopressor tablet*) 25 Mg Tablet 0.5 TAB PO Q12H for 30 Days, #30 TAB (Changed from: 1 TAB) Hold for SBP below 100mm Hg Hold for Heart Rate below 60. Continued Medications: Acetaminophen (Tylenol Extra Strength) 500 Mg Tablet 1 TAB PO DAILY PRN for pain or fever for 3 Days, #10 TAB Alprazolam (Xanax) 0.5 Mg Tablet 1 TAB PO DAILY PRN for anxiety, TAB 0 Refills Docusate Sodium (Docusate Sodium) 100 Mg Caps 1 CAP PO DAILY for constipation, CAP 0 Refills Rosuvastatin Calcium* (Crestor*) 40 Mg Tablet 1 TAB PO DAILY Discontinued Medications: Lisinopril (Lisinopril) 20 Mg Tablet 0.5 TAB PO DAILY for 30 Days, #30 TAB Omeprazole (Prilosec) 40 Mg Capsule 1 CAP PO DAILY for 30 Days, #30 CAP Rivaroxaban (Xarelto) 20 Mg Tablet 1 TAB PO HS for 30 Days, #30 TAB 0 Refills with food Discharge Summary: Patient is 74-year-old male not very good historian has some mild memory loss. Patient feels that he is getting weaker and lost lot of weight and has no appetite. [facility] for later this month however his pain over left lower quadrant increase and that is the main reason he came to the ER further workup done in ER and his hemoglobin was 7.1 hematocrit 22.2 stool guaiac testing was also positive. ER provider contacted GI specialist Dr. Simms who is willing to do the colonoscopy for patient in a.m. in Go[place] ordered by ER provider. Patient denies any other symptoms no other exacerbating factors no other alleviating factor He does follow with Dr. De La Vega and currently on Xarelto blood thinner in his medication list but he does not recall for what problem he follows with Dr. De La Vega. He also off and on use cannabis for stress relief. # Patient is admitted for GI bleeding we will keep the patient NPO after midnight GoLYTELY ordered by ER provider. Patient is started on IV Protonix drip t. Patient had colonoscopy done today but as per GI specialist prep was not good after GoLYTELY . she removed polyps but some more or there and she wants to do repeat colonoscopy in a.m. GoLYTELY ordered by GI resident. Colonoscopy done during hospitalization showed severe diverticulosis in sigmoid colon. There was no evidence of diverticular bleeding. Nine polyps in sigmoid colon which was removed with a cold snare. Nonbleeding internal hemorrhoids. As per GI specialist recommendation patient needs to resume regular diet. Patient is advised to follow up for biopsy result continue present medication repeat colonoscopy in one year for surveillance. I spoke to patient's daughter Alyssa on phone in discharge instruction discussed with her today before patient's discharge. He needs to follow-up with GI specialist in three weeks # Other comorbidities include Possible hypertension, atrial fibrillation, hyperlipidemia, anxiety disorder # mild dementia- Contracted patient's daughter Alyssa Simpson on [phone] in evening in discuss patient's current updated medical conditions in detail with her. She mentioned previously when he was admitted in the hospital he went into delirium and she is happy to get the update from nursing staff or provider's regarding her father. # Code status discussed with the patient patient wishes full code Patient is feeling better he has been afebrile and getting discharged home in stable condition. Patient is seen and examined on the day of discharge. All labs, diagnostic workup and discharge plan discussed with patient and his [id number] Alyssa in detail before her discharge. I spoke to patient's daughter Alyssa on phone in discharge instruction discussed with her today before patient's discharge. He needs to follow-up with GI specialist in three weeks. All questions and queries answered to the best of my professional medical knowledge. I heard patient's concerns and address appropriately. Patient was cleared by Physical therapy team for home discharge . manager event involved in patient's discharge plan. Discharge instructions provided to the patientPatient needs follow-up with primary care physician, GI specialist and personal injury specialist after hospital discharge, repeat CBC in five days with PCP and then every week for one month and then as per PCP. Adjustment of blood pressure medication done during hospital stay. Maintain blood pressure and heart rate log book for 2-3 weeks and follow-up with the primary care physician for hypertension. Increase oral fluids around 1500 mL per day. Activity as tolerated. Resume regular diet in 1-2 days. Follow-up colonoscopy in one year for surveillance recommended by GI specialist. Follow with GI specialist Dr. Simms in three weeks and discuss biopsy results. General-patient not in any acute distress, alert awake chronically ill- appearing, age-appropriate HEENT-atraumatic normocephalic, neck supple without elevated JVD, No lymphadenopathy bilaterally. Eyes-no icterus or pallor seen in eyes Chest-clear to auscultation bilaterally, breathing nonlabored no tachypnea, no wheezing, no crepitation, no crackles. Heart-S1-S2 normal, regular heart rate no murmur Abdomen bowel sounds positive on auscultation, soft nondistended, we will discomfort on palpation over left lower quadrant, no guarding, no rigidity Skin no active skin rash Neurology-grossly intact, nonfocal alert awake oriented, signs of mild memory loss Extremity- no pedal edema able to move all 4 extremities Psychiatry - patient is not confused or agitated cooperated during physical examination *Problems/Diagnosis: (1) Diverticulosis of sigmoid colon (2) Anemia Status: Acute Total Time Spent on D/C: > 30 Minutes Date of Service: Dec 18, 2024 Billing Provider: SHIRA DIALLO MD Common Visit Codes: 42883-YYH/OBS DISCH DAY >30min SHIRA DIALLO MD Dec 18, 2024 19:41
== END 2024-12-18 15:01 | disposition home or self-care (01) | DRG 377 ==
LOC: ER 12:31 → ED HOLD 14:53 → SUR 3N 17:15
PROVIDERS: ADMIT Internal Medicine; ATTEND Internal Medicine
PROC: 30233N1 Transfusion of Nonautologous Red Blood Cells into Peripheral Vein, Percutaneous Approach (ICD-10-PCS; 2024-12-16)
PROC: 0DBL8ZZ Excision of Transverse Colon, Via Natural or Artificial Opening Endoscopic (ICD-10-PCS; 2024-12-17)
PROC: 0DBP8ZZ Excision of Rectum, Via Natural or Artificial Opening Endoscopic (ICD-10-PCS; 2024-12-17)
PROC: 0DBM8ZZ Excision of Descending Colon, Via Natural or Artificial Opening Endoscopic (ICD-10-PCS; 2024-12-17)
PROC: 0DB68ZX Excision of Stomach, Via Natural or Artificial Opening Endoscopic, Diagnostic (ICD-10-PCS; principal; 2024-12-17 10:03)
PROC: 0DBK8ZZ Excision of Ascending Colon, Via Natural or Artificial Opening Endoscopic (ICD-10-PCS; 2024-12-17 10:03)
DX: K57.31 Diverticulosis of large intestine without perforation or abscess with bleeding (principal); K21.01 Gastro-esophageal reflux disease with esophagitis, with bleeding; F11.20 Opioid dependence, uncomplicated; I10 Essential (primary) hypertension; E78.00 Pure hypercholesterolemia, unspecified; F03.A0 Unspecified dementia, mild, without behavioral disturbance, psychotic disturbance, mood disturbance, and anxiety; K64.8 Other hemorrhoids; D50.0 Iron deficiency anemia secondary to blood loss (chronic); K59.00 Constipation, unspecified; R19.5 Other fecal abnormalities; D12.8 Benign neoplasm of rectum; D12.4 Benign neoplasm of descending colon; D12.3 Benign neoplasm of transverse colon; D12.2 Benign neoplasm of ascending colon; Z79.01 Long term (current) use of anticoagulants; Z79.899 Other long term (current) drug therapy
CPT/HCPCS: 36415; 36430; 43239; 45385; 80053; 82272; 82948; 83540; 83550; 84145; 85007; 85008; 85025; 85027; 85610; 85730; 86885; 86900; 86901; 86920; 87081; 96365; 97116; 97161; 97530; 99285; A4615; A4618; A6449; A7000; G0378; J1610; J2470; J2704; J3490; J7030; J7040; J7120; P9016

== ENCOUNTER 2024-12-22 17:46 | Emergency (ER) | payer OTHER, MEDICARE ==
[~2024-12-22] VITALS: Ht 177.8 cm; Wt 71.1 kg
[~2024-12-22 17:46] MED LIST changes: +DOCU-148 PO; +FERR324T4 PO; -LISI20TA28 PO; -OMEP40CA21 PO; +PANT40TA54 PO; -RIVA20TA PO
--- NOTE | 2024-12-22 19:20 | Physician Documentation ---
History of Present Illness ~ Chief Complaint: Arm Pain Stated Complaint: ARM PAIN Time Seen by MD: 18:19 HPI 74-YEAR-OLD MALE WHO PRESENTS TO THE EMERGENCY DEPARTMENT FOR EVALUATION OF SUSPECTED INFECTION LEFT UPPER EXTREMITY AFTER RECEIVING BLOOD TRANSFUSION AND HOSPITALIZATION. REPORTS NUMEROUS IV STICKS TO THE LEFT FOREARM SUBSEQUENTLY CAUSING SWELLING AND TENDERNESS. REPORTS THAT THERE HAS BEEN SOME RESOLUTION. HE IS CURRENTLY ON BACTRIM AND CLARITHROMYCIN FOR NOCARDIA. HE HAS A HISTORY OF NON-HODGKIN'S LYMPHOMA. HE IS FOLLOWED BY ONCOLOGY AND HAS PRIMARY CARE FOLLOW UP IN FOUR DAYS. Tetanus within 5 years: No Medication Reconciliation Allergies: Coded Allergies: No Known Allergies (Unverified , 12/22/24) Scheduled Docusate Sodium (Docusate Sodium), 1 CAP PO DAILY, (Reported) Docusate Sodium (Colace), 1 CAP PO Q12H Ferrous Sulfate (Ferrous Sulfate), 1 TAB PO Q12H Metoprolol Tartrate* (Lopressor tablet*), 0.5 TAB PO Q12H Pantoprazole Sodium (Pantoprazole Sodium), 40 MG PO BID Rosuvastatin Calcium* (Crestor*), 1 TAB PO DAILY, (Reported) Scheduled PRN Acetaminophen (Tylenol Extra Strength), 1 TAB PO DAILY PRN for pain or fever, (Reported) Alprazolam (Xanax), 1 TAB PO DAILY PRN for anxiety, (Reported) Discontinued Medications Lisinopril (Lisinopril), 0.5 TAB PO DAILY, (Reported) Omeprazole (Prilosec), 1 CAP PO DAILY, (Reported) Rivaroxaban (Xarelto), 1 TAB PO HS, (Reported) Past Medical History Past Medical History: High Cholesterol, Hypertension Past Surgical History: noncontributory Alcohol Use: None Drug Use: none Review of Systems All Other Systems at this time: Reviewed and Negative Constitutional: Denies: fever Musculoskeletal: Reports: pain, swelling Musculoskeletal MILD SWELLING AND TENDERNESS WITHOUT EVIDENCE OF RASH, PURPURA, CELLULITIS OR ABSCESS. Physical Exam Vital Signs: RN Vital Signs have been reviewed: Yes, Temperature: 97.3, Source: Oral, Heart Rate: 77, Respiratory Rate: 18, BP: 102/52, Pulse Oximetry: 98, Weight: 71.100 Oxygen Flow Rate: 0 General Appearance: alert, WD/WN, mild distress EENT: PERRL/EOMI Elbow/Forearm: ecchymosis (Chronic), soft tissue tenderness, swelling Wrist: normal inspection Hand: normal inspection Skin: warm/dry, swelling; No: pallor, cyanosis, red, ecchymosis Lymphatic: normal inspection Neurologic: oriented x4 Psychiatric: normal mood/affect Progress Results/Orders Results/Orders Vital Signs 12/22/24 12/22/24 17:51 19:32 Temp 97.3 98.6 Pulse 77 72 Resp 18 18 B/P (MAP) 102/52 104/54 Pulse Ox 98 99 O2 Flow Rate 0 Medical Decision Making Additional information obtaine: family Findings 74-YEAR-OLD MALE EXAMINATION HISTORY CONSISTENT WITH SUPERFICIAL THROMBOPHLEBITIS STATUS POST IV STICKS. NO CLINICAL SUSPICION FOR ABSCESS OR NEED FOR ANTIBIOTIC COVERAGE HE IS CURRENTLY ON ANTIBIOTICS AT THIS TIME. NO CLINICAL SUSPICION FOR CELLULITIS AND THERE IS NO LYMPHANGITIS PRESENT. RECOMMENDATIONS ARE FOR WARM MOIST SOAKS AND NSAID THERAPY WITH PHYSICIAN [facility] FOLLOW UP. SAFELY DISCHARGED TO THE EMERGENCY DEPARTMENT GROSSLY NEUROLOGICALLY INTACT. General Diff Dx:Considerations: Include: Abrasion, Contusion, Neurovascular injury, Other (CELLULITIS, ABSCESS, LYMPHANGITIS PHLEBITIS IN SUPERFICIAL THROMBOPHLEBITIS) Shoulder Diff Dx:Consideration: Include: Other (n/a) Elbow Diff Dx:Considerations: Include: Other (n/a) Wrist Diff Dx:Considerations: Include: Other (n/a) Hand Diff Dx:Considerations: Include: Other (n/a) Finger Diff Dx:Considerations: Include: Other (n/a) Departure Disposition: HOME / SELF CARE / HOMELESS Impression: Primary Impression: Superficial thrombophlebitis Qualified Codes: I80.8 - Phlebitis and thrombophlebitis of other sites Discharge Instructions: Phlebitis, Dipj-[id number] Additional Instructions: PLEASE TAKE ANTI-INFLAMMATORY AND APPLY WARM MOIST SOAKS TO THE LEFT UPPER EXTREMITY. KEEP YOUR SCHEDULED FOLLOW UP WITH THE PRIMARY CARE PHYSICIAN AND RETURN TO THE EMERGENCY DEPARTMENT SYMPTOMS WORSEN. THANK YOU FOR VISITING [facility]. Referrals: NO PRIMARY CARE PROVIDER (PCP) Education Educated: Patient, Family Educated regarding: diagnosis, treatment, prognosis, need for follow up Signature Scribe Signature: . Attestation: . SONNY RHODES PAC Dec 22, 2024 19:20
[2024-12-22 19:32] VITALS: BP 104/54; PULSE 72; RESP 18; TEMP 98.6; O2SAT 99
== END 2024-12-22 19:33 | disposition home or self-care (01) ==
LOC: ER 17:47
DX: I80.9 Phlebitis and thrombophlebitis of unspecified site (principal); I10 Essential (primary) hypertension; E78.00 Pure hypercholesterolemia, unspecified; Z79.899 Other long term (current) drug therapy
CPT/HCPCS: 99282